=== PATIENT | male | born 2000 | race Caucasian/White ===

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

== ENCOUNTER 2020-06-24 13:45 | Outpatient (CLI) | payer BC | END 2020-06-24 13:46 | disposition home or self-care (01) | LOC: RT 13:45 | PROVIDERS: ATTEND Family Medicine | DX: J45.909 Unspecified asthma, uncomplicated (principal) | CPT/HCPCS: 94010 ==